=== PATIENT | female | born 1955 | race Caucasian/White ===

== ENCOUNTER → 2017-09-10 | Outpatient (CLI) | payer OTHER ==
[~2017-09-10] MED LIST: AUGMENTIN 875 M1 TAB PO; CLARITIN10 MG PO; DARVOCET N 1001 TAB PO; FLEXERIL5 MG PO; LISINOPRIL2.5 MG PO; REGLAN5 MG PO; TOPCARE OMEPRAZ20 MG PO; TRAMADOL HCL50 MG PO; ZANTAC150 MG PO
== END | disposition home or self-care (01) ==
LOC: MAMMO 08-29 11:30 → US 08-29 12:30 → MAMMO 14:02
DX: N64.4 Mastodynia (principal)

== ENCOUNTER → 2019-03-04 | Outpatient (CLI) | payer OTHER ==
--- NOTE | ~2019-03-04 | EKG ---
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
== END | disposition home or self-care (01) ==
LOC: CARD 12:08
DX: I24.8 Other forms of acute ischemic heart disease (principal); C34.12 Malignant neoplasm of upper lobe, left bronchus or lung; J01.90 Acute sinusitis, unspecified; J30.89 Other allergic rhinitis; R11.2 Nausea with vomiting, unspecified; R21 Rash and other nonspecific skin eruption; Z45.2 Encounter for adjustment and management of vascular access device

== ENCOUNTER → 2019-03-20 | Outpatient (CLI) | payer OTHER ==
--- NOTE | ~2019-03-20 | EKG ---
[place], [place] ELECTROCARDIOGRAM REPORT NAME: ZAID BRADSHAW UNIT #: [id number] ROOM: DOCTOR: EPIPHANY DRAFT REPORT BIRTHDATE: [birth year] 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
== END | disposition home or self-care (01) ==
LOC: CARD 09:53
DX: Z45.2 Encounter for adjustment and management of vascular access device (principal); Z51.11 Encounter for antineoplastic chemotherapy; C34.12 Malignant neoplasm of upper lobe, left bronchus or lung; J01.90 Acute sinusitis, unspecified; J30.89 Other allergic rhinitis; R21 Rash and other nonspecific skin eruption; R11.2 Nausea with vomiting, unspecified

== ENCOUNTER → 2019-04-28 | Outpatient (CLI) | payer OTHER ==
--- NOTE | ~2019-04-28 | EKG ---
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
== END | disposition home or self-care (01) ==
LOC: CARD 13:27
DX: Z51.11 Encounter for antineoplastic chemotherapy (principal); C34.12 Malignant neoplasm of upper lobe, left bronchus or lung; J01.90 Acute sinusitis, unspecified; R11.2 Nausea with vomiting, unspecified; J30.89 Other allergic rhinitis; R21 Rash and other nonspecific skin eruption; Z45.2 Encounter for adjustment and management of vascular access device

== ENCOUNTER → 2019-06-11 | Outpatient (CLI) | payer OTHER | END | disposition home or self-care (01) | LOC: CARD 11:30 | DX: I10 Essential (primary) hypertension (principal); C34.90 Malignant neoplasm of unspecified part of unspecified bronchus or lung ==

== ENCOUNTER → 2019-08-13 | Outpatient (CLI) | payer OTHER ==
[2019-08-13 12:19] LABS: BASO % 0.7 % (0.0-1.0); EOS # 0.1 10*3/uL (0.0-0.4); EOS % 2.4 % (1.0-4.0); HEMATOCRIT 43.4 % (37.0-47.0); HEMOGLOBIN 14.2 g/dl (12.0-16.0); LYMPH # 1.1 10*3/uL (1.3-4.4); MEAN CELL VOLUME 92.3 fl (81.0-99.0); MEAN CORPUSCULAR HGB 30.2 pg (27.0-31.0); MEAN CORPUSCULAR HGB CONC 32.7 g/dl (33.0-37.0); MEAN PLATELET VOLUME 10.6 fl (9.6-12.3); MONO # 0.7 10*3/uL (0.1-1.0); MONO % 11.1 % (3.0-9.0); NEUT # 3.9 10*3/uL (2.3-7.9); NEUT % 66.9 % (47.0-73.0); PLATELET COUNT AUTOMATED 252 10*3/uL (130-400); RED CELL DISTRI WIDTH 12.6 % (0-14.5); WHITE BLOOD COUNT 5.8 10*3/uL (4.8-10.8)
[2019-08-13 12:48] LABS: BUN 17 mg/dl (7-24); CHLORIDE 106 mmol/L (98-107); CREATININE 0.85 mg/dL (0.55-1.02); POTASSIUM 3.7 mmol/L (3.5-5.1); SGOT/AST 14 IU/L (3-35); SGPT/ALT 28 U/L (12-78); SODIUM 139 mmol/L (136-145); TOTAL PROTEIN 7.6 gm/dL (6.4-8.2)
[2019-08-13 12:54] LABS: ALKALINE PHOSPHATASE 123 U/L (45-117); CHOLESTEROL 151 mg/dL (<200); HDL CHOLESTEROL 39 mg/dl (40-60); LDL CHOLESTEROL 70 mg/dL (9-159); TRIGLYCERIDES 209 mg/dl (<150); VLDL CHOLESTEROL 42 mg/dL (6-40)
== END | disposition home or self-care (01) ==
LOC: LAB 11:58
PROVIDERS: Internal Medicine Hematology & Oncology
DX: C34.12 Malignant neoplasm of upper lobe, left bronchus or lung (principal); Z51.11 Encounter for antineoplastic chemotherapy; R21 Rash and other nonspecific skin eruption; T82.868A Thrombosis due to vascular prosthetic devices, implants and grafts, initial encounter; J01.90 Acute sinusitis, unspecified; R11.2 Nausea with vomiting, unspecified; J30.89 Other allergic rhinitis; E78.00 Pure hypercholesterolemia, unspecified; Y83.8 Other surgical procedures as the cause of abnormal reaction of the patient, or of later complication, without mention of misadventure at the time of the procedure; Y92.89 Other specified places as the place of occurrence of the external cause; Y71.8 Miscellaneous cardiovascular devices associated with adverse incidents, not elsewhere classified